=== PATIENT | female | born 1955 | race Caucasian/White ===

== ENCOUNTER → 2020-09-01 | Outpatient (CLI) | payer BC ==
[~2020-09-01] MED LIST: COLACE 100MG C100 MG PO; LEXAPRO10 MG PO
== END ==
LOC: KOH-I 13:50
DX: F17.210 Nicotine dependence, cigarettes, uncomplicated (principal); R91.8 Other nonspecific abnormal finding of lung field
CPT/HCPCS: 71271

== ENCOUNTER → 2021-03-14 | Outpatient (CLI) | payer BC ==
[2021-03-14 10:42] LABS: HEMOGLOBIN 18.4 gm/dl (12.3-15.3); RED BLOOD COUNT 5.63 M/UL (4.00-5.10)
[2021-03-14 11:04] LABS: BUN/CREATININE RATIO 8 (0-10)
[2021-03-15 15:10] LABS: HEMATOCRIT 51.7 % (34.0-46.6)
== END ==
LOC: LAB 09:19
PROVIDERS: Internal Medicine
DX: E78.5 Hyperlipidemia, unspecified (principal); E55.9 Vitamin D deficiency, unspecified; J30.9 Allergic rhinitis, unspecified; R53.83 Other fatigue
CPT/HCPCS: 36415; 80053; 80061; 82607; 82747; 84439; 84443; 85025

== ENCOUNTER → 2021-09-18 | Outpatient (CLI) | payer BC | LOC: EXRD 15:21 | DX: I73.9 Peripheral vascular disease, unspecified (principal) | CPT/HCPCS: 93922; 93925 ==

== ENCOUNTER → 2021-10-06 | Outpatient (CLI) | payer BC | LOC: KOH-I 09-29 14:30 | DX: F17.210 Nicotine dependence, cigarettes, uncomplicated (principal); R91.1 Solitary pulmonary nodule | CPT/HCPCS: 71271 ==